=== PATIENT | female | born 1955 | race Caucasian/White ===

== ENCOUNTER → 2017-01-27 | Outpatient (CLI) | payer MEDICAID, OTHER ==
[~2017-01-27] MED LIST: ANXIETY MED; BP MEDS; INHALER
== END | disposition home or self-care (01) ==
LOC: CFH 06:40
PROVIDERS: ATTEND Registered Nurse
DX: M50.122 Cervical disc disorder at C5-C6 level with radiculopathy (principal); M48.02 Spinal stenosis, cervical region; M25.78 Osteophyte, vertebrae
CPT/HCPCS: 72050; 72141

== ENCOUNTER 2017-02-05 15:02 | Emergency (ER) | payer MEDICAID ==
[~2017-02-05] VITALS: Ht 154.9 cm; Wt 57.0 kg
[2017-02-05] MEDS ORDERED: SODIUM CHLORIDE 0.9% 1,000 ML IV ONE (15:12)
[2017-02-05] MEDS ORDERED: SODIUM CHLORIDE FLUSH 10ML SYR IVF ONE (15:30)
[2017-02-05] MEDS ORDERED: SODIUM CHLORIDE 0.9% 1,000ML IVBOLUS ONE (15:30)
[2017-02-05 15:50] LABS: BLOOD UREA NITROGEN 19 mg/dL (7-18)
[2017-02-05 15:54] LABS: IS PT STATUS REG ER OR PRE ER? YES
[2017-02-05 17:13] VITALS: BP 105/58
== END 2017-02-05 17:15 | disposition home or self-care (01) ==
LOC: ED 17:08
DX: I95.9 Hypotension, unspecified (principal); J44.9 Chronic obstructive pulmonary disease, unspecified; I10 Essential (primary) hypertension; G89.29 Other chronic pain
CPT/HCPCS: 36415; 71010; 80048; 82040; 83880; 84484; 85025; 93005; 99285; J7030

== ENCOUNTER → 2017-04-13 | Outpatient (CLI) | payer MEDICAID | END | disposition home or self-care (01) | LOC: CFH 12:07 | PROVIDERS: ATTEND Registered Nurse | DX: M54.12 Radiculopathy, cervical region (principal); Z98.1 Arthrodesis status; Z98.890 Other specified postprocedural states | CPT/HCPCS: 72040 ==

== ENCOUNTER 2018-08-25 20:42 | Emergency (ER) | payer MEDICAID ==
[~2018-08-25] VITALS: Ht 154.9 cm; Wt 60.1 kg
[2018-08-25 20:46] VITALS: BP 141/81
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
--- NOTE | 2018-08-25 23:00 | NUR ---
XRAY CALLED D/T UNREAD LEFT HAND XRAY
--- NOTE | 2018-08-25 23:05 | NUR ---
Note ann-marieone in EDM - 08/25/18 at 2309 by CA PT PRESENTS TO ED WITH C/O RIGHT UE FISTULA THAT IS OOZING SINCE THIS AM. LAST DIALYSIS WAS WAS YESTERDAY. +TRILL/BRUIT TO FISTULA. COMPRESSION DRESSING APPLIED BY KAREN BLACKWELL, RIGHT ARM ELEVATED.
--- NOTE | 2018-08-25 23:09 | NUR ---
NOTE UNDONE, CHARTED ON WRONG PT.
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
--- NOTE | 2018-08-26 00:17 | NUR ---
report to JOSE Hay
== END 2018-08-26 01:01 | disposition home or self-care (01) ==
LOC: ED 22:36
DX: S62.646A Nondisplaced fracture of proximal phalanx of right little finger, initial encounter for closed fracture (principal); F41.1 Generalized anxiety disorder; I10 Essential (primary) hypertension; J44.9 Chronic obstructive pulmonary disease, unspecified; F32.9 Major depressive disorder, single episode, unspecified; Z90.49 Acquired absence of other specified parts of digestive tract; X58.XXXA Exposure to other specified factors, initial encounter; Y93.89 Activity, other specified; Y92.098 Other place in other non-institutional residence as the place of occurrence of the external cause; Y99.8 Other external cause status
CPT/HCPCS: 29125; 99283